=== PATIENT | female | born 1985 | race Caucasian/White ===

== ENCOUNTER 2022-11-05 19:02 | Outpatient (CLI) | payer BC, SELFPAY ==
[2022-11-05 20:53] LABS: Cholesterol* 212 mg/dL (90-199); Glucose* 103 mg/dL (60-115)
[2022-11-05 20:54] LABS: HDL Cholesterol* 73 mg/dL (>=50); LDL Cholesterol Calculated 107 mg/dL (<100); Triglycerides* 159 mg/dL (40-149)
== END 2022-11-05 19:03 | disposition home or self-care (01) ==
PROVIDERS: Visit Provider Registered Nurse
DX: Z13.6 Encounter for screening for cardiovascular disorders (principal); Z13.1 Encounter for screening for diabetes mellitus
CPT/HCPCS: 80061; 82947

== ENCOUNTER 2025-01-19 15:25 | Outpatient (CLI) | payer BC, SELFPAY | END 2025-01-19 15:26 | disposition home or self-care (01) | LOC: NFLDREF 15:26 | PROVIDERS: Visit Provider Registered Nurse | DX: Z13.6 Encounter for screening for cardiovascular disorders (principal) | CPT/HCPCS: 80061 ==

== ENCOUNTER 2025-03-28 08:53 | Outpatient (CLI) | payer BC, SELFPAY | END 2025-03-28 08:54 | disposition home or self-care (01) | PROVIDERS: Visit Provider Obstetrics & Gynecology | DX: O20.9 Hemorrhage in early pregnancy, unspecified (principal); Z67.10 Type A blood, Rh positive | CPT/HCPCS: 84702; 86850; 86900; 86901 ==

== ENCOUNTER 2025-04-12 13:46 | Outpatient (CLI) | payer BC, SELFPAY ==
--- OUTSIDE RECORDS SUMMARY | 2025-03-15 04:54 | XMS_ITS | Continuity of Care Document ---
Author Organization [facility] Address [address] [facility] [place] [address] Phone Care Team Providers Care Co Founder & Ceo Name Role Phone Lisa Jaramillo Unavailable Unavailable Allergies, Adverse Reactions, Alerts Substance Reaction Status Criticality No Known Allergies Active No Inform ation Medications Medication Instructions Dosage Effective Dates (start - stop) Status Comments Zoloft 25 mg tablet take 2 tablet by oral route every day - Active Wellbutrin XL 150 mg 24 hr tablet, extended release TAKE 2 TABLET BY MOUTH EVERY DAY - Active Proctosol HC 2.5 % topical cream perineal applicator apply by topical route 2- 4 times every day a thin layer to the affected area(s) 0.00 - Active Zoloft 25 mg tablet take 2 tablet by oral route every day - No Longer Active Procedures Procedure Date OFFICE/OUTPATIENT VISIT, EST BODY MASS INDEX DOCD OFFICE/OUTPATIENT VISIT, EST BODY MASS INDEX DOCD Cytopath, cervical/vaginal, manual scree n Preventive Exam Age 18-39 OFFICE/OUTPATIENT VISIT, EST IMMUNIZATION ADMIN FLU VAC NO PRSV 4 HELEN 3 YRS+ OFFICE/OUTPATIENT VISIT, EST ELECTROCARDIOGRAM, COMPLETE OFFICE/OUTPATIENT VISIT, EST OFFICE/OUTPATIENT VISIT, EST BODY MASS INDEX DOCD IMMUNIZATION ADMIN FLU VAC NO PRSV 4 HELEN 3 YRS+ OFFICE/OUTPATIENT VISIT, EST OFFICE/OUTPATIENT VISIT, EST BODY MASS INDEX DOCD OFFICE/OUTPATIENT VISIT, EST BODY MASS INDEX DOCD IMMUNIZATION ADMIN FLU VAC NO PRSV 4 HELEN 3 YRS+ OFFICE/OUTPATIENT VISIT, EST BODY MASS INDEX DOCD COVID Antibody Testing OFFICE/OUTPATIENT VISIT, EST BODY MASS INDEX DOCD BODY MASS INDEX DOCD OFFICE/OUTPATIENT VISIT, NEW Advance Directives Directive Yes / No Effective Date File Name No Information Encounters Encounter Description Practice Location Reason(s) For Visit Diagnoses Date Provider Providers Copied on Encounter [facility], [address], [place], [id number], [place] tel:[phone] [facility] No Information 5 Jen Gonzalez. [address], [place], [id number], [place]. tel:[phone] [facility], [address], [place], [id number], [place] tel:[phone] [facility] No Information 5 Ulises Claudine. [address], [place], [id number], [place]. tel:[phone] OFFICE/OUTPA TIENT VISIT, EST [facility], [address], [place], [id number], [place] tel:[phone] [facility] Sea Sickness (chief complaint) Body mass index [BMI] 22.0-22.9, adultSea sickness, initial encounterTrave l advice encounter 5 Jose Lawrence. [address], [place], [id number], [place]. tel:[phone] [facility], [address], [place], [id number], [place] tel:[phone] [facility] No Information 5 Ulises Chow. [address], [place], [id number], [place]. tel:[phone] OFFICE/OUTPA TIENT VISIT, EST [facility], [address], [place], [id number], [place] tel:[phone] [facility] Follow Up of Anxiety (chief complaint)c hewing ice (chief complaint) Body mass index [BMI] 23.0-23.9, adultScreening , iron deficiency anemiaPicaGene ralized anxiety disorderOther fatigue 5 Ulises Chow. [address], [place], [id number], [place]. tel:[phone] Preventive Exam Age 18-39 [facility], [address], [place], [id number], [place] tel:[phone] [facility] Preventive exam (chief complaint) Encounter for screening for lipoid disordersEncou nter for screening for diabetes mellitusEncoun ter for gynecological examination (general) (routine) without abnormal findingsBody mass index [BMI] 22.0-22.9, adultExternal hemorrhoids 4 Ulises Chow. [address], [place], [id number], [place]. tel:[phone] OFFICE/OUTPA TIENT VISIT, EST [facility], [address], [place], [id number], [place] tel:[phone] [facility] Anxiety (chief complaint) Body mass index [BMI] 23.0-23.9, adultGeneraliz ed anxiety disorder 4 Ulises Chow. [address], [place], [id number], [place]. tel:[phone] OFFICE/OUTPA TIENT VISIT, EST [facility], [address], [place], [id number], [place] tel:[phone] [facility] Sleep apnea (chief complaint) Body mass index [BMI] 23.0-23.9, adultOther fatiguePolycyt hemia vera 3 Ulises Chow. [address], [place], [id number], [place]. tel:[phone] OFFICE/OUTPA TIENT VISIT, EST [facility], [address], [place], [id number], [place] tel:[phone] [facility] Follow Up of Anxiety (chief complaint) Body mass index [BMI] 22.0-22.9, adultGeneraliz ed anxiety disorder 3 Ulises Chow. [address], [place], [id number], [place]. tel:[phone] OFFICE/OUTPA TIENT VISIT, EST [facility], [address], [place], [id number], [place] tel:[phone] [facility] Lump (chief complaint)A nxiety (chief complaint) Body mass index [BMI] 23.0-23.9, adultEnlarged lymph node in neckGeneralize d anxiety disorder 3 Ulises Claudine. [address], [place], [id number], [place]. tel:[phone] OFFICE/OUTPA TIENT VISIT, EST [facility], [address], [place], [id number], [place] tel:[phone] [facility] uri (chief complaint)l ump (chief complaint) Body mass index [BMI] 23.0-23.9, adultGeneraliz ed anxiety disorderViral respiratory illnessOther viral agents as the cause of diseases classified elsewhereEnlar ged lymph node 3 Ulises Chow. [address] [facility] [place], [id number], [place]. tel:[phone] OFFICE/OUTPA TIENT VISIT, EST [facility], [address] [facility] [place], [id number], [place] tel:[phone] [facility] Follow Up of Anxiety (chief complaint)F ollow Up of Depression (chief complaint) Body mass index [BMI] 23.0-23.9, adultGeneraliz ed anxiety disorder 2 Ulises Chow. [address] [facility] [place], [id number], [place]. tel:[phone] OFFICE/OUTPA TIENT VISIT, EST [facility], [address] [facility] [place], [id number], [place] tel:[phone] [facility] Follow Up of depression (chief complaint)F ollow Up of Anxiety (chief complaint) Body mass index [BMI] 24.0-24.9, adultGeneraliz ed anxiety disorder 2 Ulises Chow. [address] [facility] [place], [id number], [place]. tel:[phone] OFFICE/OUTPA TIENT VISIT, [facility], [address] [facility] [place], [id number], [place] tel:[phone] [facility] Depression (chief complaint) Generalized anxiety disorderEncoun ter for immunizationBo dy mass index [BMI] 23.0-23.9, adult 1 Jose Lawrence. [address] [facility], [place], [id number], [place]. tel:[phone] OFFICE/OUTPA TIENT VISIT, EST [facility], [address] [facility] [place], [id number], [place] tel:[phone] [facility] Follow Up of Anxiety (chief complaint) Body mass index [BMI] 24.0-24.9, adultOther fatigueGeneral ized anxiety disorder 1 Ulises Chow. [address], [place], [id number], [place]. tel:[phone] OFFICE/OUTPA TIENT VISIT, [facility], [address], [place], [id number], [place] tel:[phone] [facility] Anxiety (chief complaint) Body mass index [BMI] 25.0-25.9, adultGeneraliz ed anxiety disorder 1 Ulises Chow. [address], [place], [id number], [place]. tel:[phone] Family History Family Member Type Diagnosis Age At Onset No Information Immunizations Vaccine Date Status Comments Pfizer COVID-19 Vaccine(PF) 30 mcg/0.3mL IM susp administered Source: Other Gary ry Regular Flu - .5ml, PF preservative free , administered Source: Ne w Immunization Record Regular Flu - .5ml, PF preservative free , administered Source: [place] w Immunization Record Regular Flu - .5ml, PF preservative free , administered Source: Ne w Immunization Record Tdap administered Source: Other P rovider Payers Payer name Insurance type Covered alliance party ID Authoriza tion(s) Cigna CI [id number] Cigna CI [id number] Cigna CI [id number] Social History Type Description Quantity Date Captured Comments Alcohol Use Details Unknown Caffeine Use Details Unknown Tobacco Use Status No Information Smoking Status No Information Sex Female Chief Complaint And Reason For Visit No Information Reason For Referral Reason For Referral No Information Plan Of Treatment Date Type Action Status Goal Lifestyle education regardin g diet completed Goal Lifestyle education regardin g diet completed Goal Lifestyle education regardin g diet completed Goal Lifestyle education regardin g diet completed Goal Lifestyle education regardin g diet completed Goal Lifestyle education regardin g diet completed Goal Lifestyle education regardin g diet completed Goal Lifestyle education regardin g diet completed Goal Lifestyle education regardin g diet completed Goal Lifestyle education regardin g diet completed Goal Lifestyle education regardin g diet completed Goal Lifestyle education regardin g diet completed Goal Lifestyle education regardin g diet completed Appointment [facility] BOOKED Future Order: Lab Order CBC (INC LUDES DIFF/PLT) (3902), Ordered on: Ordered Future Order: Lab Order TSH, 3RD GENERATION ([id number]), Ordered on: Ordered History Of Present Illness Encounter Date Complaint History Of Prese nt Illness Sea Sickness Pt travelling to [place]. She gets sea sick and is hoping for medication to prevent and or treat this. Feels well today Follow Up of Anxiety The first e pisode occurred in 2015. There is continuation of initial symptoms and improvement of initial symptoms. There is no worsening of previously reported symptoms. The patient reports functioning as not difficult at all. The patient does not present with anxious/fearful thoughts, compulsive thoughts, decreased need for sleep, depressed mood, difficulty concentrating, difficulty falling asleep, difficulty staying asleep, easily startled, excessive worry, fatigue, feelings of invulnerability, increased energy, loss of appetite or poor judgment. The patient denies any headache, irritability, nausea, sweating, trembling, urinary frequency and vomiting. chewing ice pt has started c hewing ice. Her dentist told her she needs to come to the doctor and make sure she is not iron defiance Preventive exam Last LMP was 02/2024. Patient's menses is regular. Negative for: breast discharge, breast lump(s), breast pain and breast self exam. The patient does not drink alcohol. Additional information: Pt is in for her annual wellness. she is doing well. Would like hemorrhoids checked today.Immunizations: UTDCovid: 08/31/23Pap: Due today Anxiety There is improve ment of initial symptoms. The patient does not present with anxious/fearful thoughts, decreased need for sleep, depressed mood, difficulty concentrating, diminished interest or pleasure or thoughts of or suicide. The patient denies any chronic pain, headache, irritability, nausea, sweating, trembling, urinary frequency, vomiting and weight gain. Additional information: Pt doing well and has started titrating down her sertraline. She has decreased her dose from 50mg to 37.5mg daily a few months ago. She has not noticed any withdrawal symptoms or increase in anxiety. Pt wants to decrease dose to 25mg daily in a month. She eventually wants to titrate down and stop the bupropion as well, but says she will wait a year or so to start that process. Sleep apnea Relevant history : a BMI of 23.00. Denies relieving factors. The patient is also experiencing depression, difficulty concentrating, difficulty initiating sleep, difficulty maintaining sleep, headache, insomnia, nasal congestion and non-restorative sleep. The patient denies awakening with choking, awakening with shortness of breath, gasping during sleep, heartburn, irritability, nocturia, personality changes, poor or worsening memory, sleep attacks, snoring (reported bypatient), snoring (reported by others), sore throat upon awakening, weight gain, wheezing or witnessed apnea or irregular nighttime breathing. Additional information: Gave pt sleep apnea questionnaire. Follow Up of Anxiety The first e pisode occurred in 2015. The patient does not present with anxious/fearful thoughts, compulsive thoughts, decreased need for sleep, depressed mood, difficulty concentrating, difficulty falling asleep, difficulty staying asleep, diminished interest or pleasure, easily startled, excessive worry, fatigue, feelings of guilt, increased energy, hallucinations, increased libido, loss of appetite, paranoia, poor judgment, racing thoughts, restlessness or thoughts of or suicide. The patient denies any headache, irritability, nausea, sweating, trembling, urinary frequency, vomiting and weight gain. 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 On top of working and taking care or her kids She is a little overwelmed. Lump on left side of neck, has become smaller uri The symptoms beg an on 10/07/2022. The patient presents with cough, fatigue and pharyngitis. The patient denies change in appetite, change in sleep cycle, constipation, diaphoresis, dizziness, dyspnea, hoarseness, increased abdominal girth, jaundice, lightheadedness, malaise, melena, neck stiffness, pruritus, rash, reduced urine output, somnolence, weight gain and weight loss. lump Left side of the neck a small lump she had noticed about 3 months ago and not bothersome. Follow Up of Anxiety This is a f ollow up visit. The patient presents with depressed mood and fatigue but denies anxious/fearful thoughts, compulsive thoughts, decreased need for sleep, difficulty concentrating, difficulty falling asleep, difficulty staying asleep, diminished interest or pleasure, easily startled, excessive worry, feelings of guilt, increased energy, hallucinations, loss of appetite, paranoia, poor judgment, racing thoughts, restlessness or thoughts of or suicide. Still having 5 days that pt is irratated. Follow Up of Depression medicati ons working well Follow Up of depression This is a follow up visit. The patient presents with anxious/fearful thoughts, depressed mood, difficulty concentrating, difficulty staying asleep, easily startled, fatigue, increased energy, racing thoughts and thoughts of or suicide but denies compulsive thoughts, decreased need for sleep, difficulty falling asleep, diminished interest or pleasure, excessive worry, feelings of guilt, hallucinations, loss of appetite, paranoia, poor judgment or restlessness. Additional information: medication is working well. Trying to decrease meds. Follow Up of Anxiety Depression This is a follow up visit. There is improvement of initial symptoms. The patient presents with diminished interest or pleasure and fatigue but denies anxious/fearful thoughts, depressed mood, difficulty concentrating, difficulty falling asleep, difficulty staying asleep, easily startled, excessive worry, racing thoughts, restlessness or thoughts of or suicide. Additional information: Pt states was on 200mg of the sertraline. Depression is doing much better. Is having lack of libido as a side effect. Now down to 125mg po qd but was dizzy and fatigued for 1.5 weeks. States doing better now. Denies si/hi. Follow Up of Anxiety The patient presents with anxious/fearful thoughts, depressed mood, difficulty staying asleep, fatigue and decreased libido but denies compulsive thoughts, decreased need for sleep, difficulty concentrating, difficulty falling asleep, diminished interest or pleasure, easily startled, excessive worry, feelings of guilt, feelings of invulnerability, increased energy, hallucinations, increased libido, loss of appetite, paranoia, poor judgment, racing thoughts, restlessness or thoughts of or suicide. Pt has also found out that her dad has IGG def and does not form it. He presented with fatigue. She has not been a sickly person. She is vaccinated for Covid Anxiety The first episod e occurred in 2002. The patient does not present with anxious/fearful thoughts, compulsive thoughts, depressed mood, difficulty concentrating or fatigue. The patient denies any headache, irritability, nausea, sweating, trembling, urinary frequency, vomiting and weight gain. Functional Status Date Functional Assessmen t No Information Instructions Date Instruction Additional Infor risa Lifestyle education regarding di et Related to Body mass index (BMI) 22.0-22.9, adult doing really well on medication follow up in 6 months Maybe able to come off medication at that time. Related to Generalized anxiety disorder will check labs Related to Pica will get some screen ing labs and call pt with resutls follow up in 3 days Related to Other fatigue Suggested education reviewed for Other fatigue (R53.83), Acute. Lifestyle education regarding di et Related to Body mass index (BMI) 23.0-23.9, adult pt doing well vaccin e are up todatepap today will follow up in 5 yrs if negative for hpv had labs in 09/04follow up in 1 yr Related to Encounter for gynecological examination (general) (routine) without abnormal findings Prescribed topical p roctosol and will continue sits baths. follow up in 2 wks Related to External hemorrhoids Lifestyle education regarding di et Related to Body mass index (BMI) 22.0-22.9, adult Doing well after dec reasing the sertraline dose to 37.5 mg daily. Decrease the dose to 25 mg daily after Daylight Savings as discussed and continue to watch for signs and symptoms of withdrawal or increased anxiety. Follow up in January after decreasing the dose, or earlier if withdrawal symptoms or increased anxiety develop. Related to Generalized anxiety disorder Lifestyle education regarding di et Related to Body mass index (BMI) 23.0-23.9, adult Pt needs sleep study even with study number being 13 for study but H/H is elevated and fatigue. Review risk and why it is important to find out why Her Hematrocrit at 49.1 and Hemoglobin is 15.8. Albumin is high at 5.0. Also talked about adhd. need Vanderbelts. Signed consent incase it is positive. follow up in 1 month Related to Other fatigue Suggested education reviewed for Other fatigue (R53.83), Acute. Lifestyle education regarding di et Related to Body mass index (BMI) 23.0-23.9, adult doing ok on Welbrutr in 150 mg 2 once a day and Zoloft 50 mg. would like to go down to the 25 mg of zoloft will do 25 mg and 50 ultrernating for 1 wks if ok then will go to 25 mg for 2 wks if ok then will decrease to 25 mg and 0 mg every other day follow up in 6 month if ok if not then 2 months. EKG done to make sure on change but not baseline so normal EKG with RRprime Related to Generalized anxiety disorder Suggested education reviewed for Generalized anxiety disorder (F41.1), chronic. 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 Prescription given for Propranolol to decrease overactive sympathetic symptoms related to stress. Followup in 2 weeks time for medication check or sooner if needed. Related to Generalized anxiety disorder Patient seen for f/u regarding enlarged cervical lymph node. Lymph node has decreased in size steadily since last visit and remained non-tender and mobile. No further workup indicated at this time. Followup with office as needed or if symptoms worsen or persist. Related to Enlarged lymph node in neck Lifestyle education regarding di et Related to Body mass index (BMI) 23.0-23.9, adult will recheck in 2 wk s. Seems to be inflamed due to patient being ill over and over. will recheck in 2 wks and get cbc if still enlarged. Related to Enlarged lymph node improving looks like l pt had flu. Lungs are clear will watch for pnuemonia follow up in 2 wks Related to Viral respiratory illness pt is having some tr ouble after being to ill for the last couple months will follow u in 2 wks Related to Generalized anxiety disorder Suggested education reviewed for Generalized anxiety disorder (F41.1), chronic. Lifestyle education regarding di et Related to Body mass index (BMI) 23.0-23.9, adult pt is doing well exc ept those 5 days. She will check labs during that time which is this weekend. follow up in 6 months Will call her with results. Could consider given an exctra dose on those 5 days Related to Generalized anxiety disorder Lifestyle education regarding di et Related to Body mass index (BMI) 23.0-23.9, adult Suggested education reviewed for Generalized anxiety disorder (F41.1), chronic, Active. doing well with medi cation will continue them both. 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 follow up in 6 months Related to Generalized anxiety disorder Lifestyle education regarding di et Related to Body mass index (BMI) 24.0-24.9, adult Suggested education reviewed for Generalized anxiety disorder (F41.1), chronic. Plan:1. Day 1 07/27 decrease Sertraline to 100mg and start 150mg of Wellbutrin 2. Day 5 08/10 decrease Sertraline to 75mg 3. On 08/24 Decrease Sertraline to 50mg and continue 150mg of Wellbutrin. At this time if we need we can increase to 300mg of Wellbutrin. Call or email me if having issues. 4. Follow up in 1 month or sooner if new or worsening symptoms such as worsening mood or thoughts of harming yourself or others Related to Generalized anxiety disorder Lifestyle education regarding di et Related to Body mass index (BMI) 23.0-23.9, adult anxiety is controlle d but she is having trouble with desire for sexual contact. follow up in 6 months with pt stops breast feeding. Would suggest that pt change to Wellbutrin due to it not decreasing sexual drive likey SSRI. Related to Generalized anxiety disorder Will check labs and pt has IGG for the covid vaccine so not likely that she has IGG def. Will call with refult and monitor Related to Other fatigue Suggested education reviewed for Other fatigue (R53.83), Acute. Lifestyle education regarding di et Related to Body mass index (BMI) 24.0-24.9, adult doing well with medi cation and therapy. will continue follow up in 6 months Related to Generalized anxiety disorder Suggested education reviewed for Generalized anxiety disorder (F41.1), Active. Related to {[email or web address]} Lifestyle education regarding di et Related to Body mass index (BMI) 25.0-25.9, adult Assessments Type Assessment Date No Information Patient Care Teams Name Effective Dates (start - stop) Status Members No Information
--- NOTE | 2025-04-12 14:00 | CRLHL7_ITS ---
For Patients: As a result of the Century Cures Act, medical imaging exams and procedure reports are released immediately into your electronic medical record. You may view this report before your referring provider. If you have questions, please contact your health care provider. OBSTETRICAL ULTRASOUND 1ST TRIMESTER TRANSVAGINAL, 04/12/2025 CLINICAL INDICATION: Dating and viability. LMP: 02/11/2025 KAYLA by LMP: 11/18/2025 Gestational age: 8 weeks 4 days Previous ultrasound: No TECHNIQUE: Real-time bello-scale imaging of the fetus was performed transvaginal. Transvaginal imaging was performed for better visualization of the endometrium and ovaries. FINDINGS: CRL: 0.3 cm, 5 weeks 6 days; KAYLA 12/07/2025 heart rate: 0 BPM Gestational sac: 2.3 cm, small for dates Yolk sac: 3.2 mm Right ovary: 3.3 x 1.2 x 2.4 cm Left ovary: 3.1 x 2.1 x 2.7 cm, CL IMPRESSION: 1. Intrauterine gestational sac is present containing a pole. The pole measures 2.9 mm. No heart tones. The pole measures 5 weeks 6 days. Recommend follow-up in 10-14 days. 2. Subchorionic hemorrhage is present which measures 1.4 x 0.8 x 0.4 cm. 3. Corpus luteal cyst of left ovary measures 2.3 x 1.8 x 1.5 cm. ISAAK BANKS M.D. Diagnostic Radiologist [email or web address] Transcribed: 5:[address]/Dictated by: Isaak Banks MD @ 04/12/2025 5:03:00 PM (Electronically Signed)
== END 2025-04-12 13:47 | disposition home or self-care (01) ==
LOC: US 13:47
PROVIDERS: Visit Provider Registered Nurse
DX: Z34.91 Encounter for supervision of normal pregnancy, unspecified, first trimester (principal); O20.9 Hemorrhage in early pregnancy, unspecified; O34.81 Maternal care for other abnormalities of pelvic organs, first trimester; N83.12 Corpus luteum cyst of left ovary; Z3A.08 8 weeks gestation of pregnancy
CPT/HCPCS: 76817

== ENCOUNTER 2025-08-12 08:11 | Outpatient (CLI) | payer BC, SELFPAY ==
--- NOTE | 2025-08-12 08:15 | CRLHL7_ITS ---
For Patients: As a result of the Cures Act, medical imaging exams and procedure reports are released immediately into your electronic medical record. You may view this report before your referring provider. If you have questions, please contact your health care provider. OB ULTRASOUND INDICATION: Dating and viability. TECHNIQUE: Real time grayscale imaging of the fetus was performed. Transvaginal. Transvaginal imaging performed to better demonstrate the endometrium and ovaries. LMP: 06/15/2025. KAYLA by LMP: 03/22/2026. GA: 8 w, 2 d. CRL: 1.6 cm. 8 w 0 d. KAYLA: 03/24/2026. FHR: 167 BPM. Gestational sac: 2.8 cm. Appears within normal limits. Yolk sac: 3.3 mm. Appears within normal limits. Right ovary: Within normal limits. 3.9 x 2 x 2.5 cm. CL. Left ovary: Within normal limits. 3.5 x 1.8 x 3.2 cm. CL. COMMENT: Bilateral ovary corpus luteum. Right 2.1 x 1.6 x 1.9 cm. Left 1.9 x 1.1 x 1.7 cm. IMPRESSION: Single living intrauterine measures 8 weeks 0 days with sonographic due date 03/24/2026. Isaak Huddleston M.D. Diagnostic Radiologist [email or web address] MARGO/sondra amaro/Dictated by: Isaak Huddleston MD @ 08/12/2025 12:27:00 PM (Electronically Signed)
== END 2025-08-12 08:12 | disposition home or self-care (01) ==
LOC: US 08:13
PROVIDERS: Visit Provider Registered Nurse
DX: Z34.91 Encounter for supervision of normal pregnancy, unspecified, first trimester (principal); Z3A.08 8 weeks gestation of pregnancy; O34.81 Maternal care for other abnormalities of pelvic organs, first trimester; N83.11 Corpus luteum cyst of right ovary; N83.12 Corpus luteum cyst of left ovary
CPT/HCPCS: 76817; 83021; 86592; 86703; 86704; 86706; 86762; 86787; 86803; 86850; 86900; 86901; 87086; 87340; 87491; 87591

== ENCOUNTER 2025-08-12 09:37 | Outpatient (CLI) | payer BC, SELFPAY ==
[2025-08-12 13:06] LABS: Chlamydia DNA Amplified* NOT DETECTED (No Detected); GC DNA Amplified* NOT DETECTED (No Detected)
== END 2025-08-12 09:38 | disposition home or self-care (01) ==
PROVIDERS: Visit Provider Registered Nurse
DX: O34.81 Maternal care for other abnormalities of pelvic organs, first trimester (principal); N83.11 Corpus luteum cyst of right ovary; N83.12 Corpus luteum cyst of left ovary; Z3A.08 8 weeks gestation of pregnancy
CPT/HCPCS: 76817; 83020; 83021; 85660; 86592; 86703; 86704; 86706; 86762; 86787; 86803; 86850; 86900; 86901; 87086; 87340; 87491; 87591